=== PATIENT | female | born 2000 | race Caucasian/White ===

== ENCOUNTER 2022-01-06 21:21 | Emergency (ER) | payer OTHER | END 2022-01-06 23:08 | disposition home or self-care (01) | LOC: CSHERS 21:21 | DX: U07.1 COVID-19 (principal); F17.290 Nicotine dependence, other tobacco product, uncomplicated | CPT/HCPCS: 99283; U0003; U0005 ==

== ENCOUNTER 2022-04-21 23:38 | Emergency (ER) | payer OTHER ==
[2022-04-22 00:51] LABS: SARS-CoV-2 NAA Rapid Test Not Detected (NotDetected)
== END 2022-04-22 01:47 | disposition left against medical advice (07) ==
LOC: CSHERS 23:38
DX: Z53.21 Procedure and treatment not carried out due to patient leaving prior to being seen by health care provider (principal)
CPT/HCPCS: 87081; 87430

== ENCOUNTER 2022-07-01 20:43 | Emergency (ER) | payer OTHER ==
[2022-07-01] MEDS ORDERED: Acetaminophen 500 MG TAB ONE (21:34)
[2022-07-01 21:38] LABS: Bilirubin Neg (Negative); Blood, Urine 10 (Negative); Clarity Slightly Cloudy (Clear); Glucose, Urine (Dipstick) Normal (Negative); Ketone, Urine 5 mg/dL (Negative); Leukocyte 25 (Negative); Nitrite Negative (Negative); Protein, Urine (Dipstick) 15 mg/dl (Neg-Trace); Specific Gravity, Urine 1.025 (1.005-1.030); Urobilinogen Normal mg/dL (Less than 2)
[2022-07-01 21:42] LABS: Pregnancy Test - Urine (BHCG) Negative (Negative)
[2022-07-01 21:43] LABS: Pregu Control Background? CLEAR/WHITE (CLR/WHITE); Pregu Control Bar Appear? YES (CONTROL BAR); Specific Gravity 1.025 (1.002-1.036)
[2022-07-01 21:49] LABS: Bacteria/HPF Rare-Few HPF (None Seen); RBC/HPF 0-3 HPF (0-3); WBC/HPF 0-3 HPF (0-3)
[2022-07-01] MEDS ORDERED: Methocarbamol 500 MG TAB PO SCH (23:00)
== END 2022-07-01 22:58 | disposition home or self-care (01) ==
LOC: CSHERS 20:43
DX: S20.212A Contusion of left front wall of thorax, initial encounter (principal); S13.4XXA Sprain of ligaments of cervical spine, initial encounter; F17.290 Nicotine dependence, other tobacco product, uncomplicated; V89.2XXA Person injured in unspecified motor-vehicle accident, traffic, initial encounter
CPT/HCPCS: 71046; 81003; 81015; 81025

== ENCOUNTER 2022-09-07 08:12 | Emergency (ER) | payer OTHER ==
[2022-09-07] MEDS ORDERED: Acetaminophen 500 MG TAB ONE (08:32)
[2022-09-07] MEDS ORDERED: Ibuprofen 200 MG TAB ONE (08:33)
== END 2022-09-07 09:11 | disposition home or self-care (01) ==
LOC: CSHERS 08:12
DX: S90.32XA Contusion of left foot, initial encounter (principal); F17.290 Nicotine dependence, other tobacco product, uncomplicated; W10.1XXA Fall (on)(from) sidewalk curb, initial encounter